=== PATIENT | male | born 1955 | race Caucasian/White ===

== ENCOUNTER 2018-07-26 13:51 | Inpatient (IN) | payer BC, OTHER | END 2018-07-29 10:50 | disposition home or self-care (01) | LOC: TELE-WESTW 07-28 15:13 → ER 13:51 → TELE-WESTW 07-27 12:21 → DOU IN ICU 07-27 17:03 → TELE 16:27 → TELE-WESTW 19:05 | DX: K56.609 Unspecified intestinal obstruction, unspecified as to partial versus complete obstruction (principal); N17.0 Acute kidney failure with tubular necrosis; C85.90 Non-Hodgkin lymphoma, unspecified, unspecified site ==

== ENCOUNTER 2018-08-05 07:07 | Inpatient (IN) | payer BC ==
[~2018-08-05] VITALS: Ht 177.8 cm; Wt 66.6 kg
[~2018-08-05 07:07] MED LIST: MET5XLT PO
[2018-08-05] MEDS ORDERED: SODIUM CHLORIDE 0.9% 1,000 ML IV ONE ×2 (07:22)
[2018-08-05] MEDS ORDERED: MORPHINE SULFATE 4 MG/ML SYR/VIAL IV ONE (07:30)
[2018-08-05] MEDS ORDERED: ONDANSETRON HCL 4 MG/2 ML VIAL IV ONE (07:30)
[2018-08-05 07:52] LABS: Lymphocytes # (auto) 0.8 uL; White Blood Cell 7.1 10^3/uL (4.4-10.8)
[2018-08-05 07:53] LABS: Basophils # (auto) 0.1 uL; Basophils % (auto) 1.3 % (0.0-2.0); Eosinophils # (auto) 0.1 uL; Eosinophils % (auto) 0.9 % (0.0-7.0); Hematocrit 44.1 % (41.0-53.0); Hemoglobin 15.3 g/dL (13.5-17.5); Lymphocytes % (auto) 11.6 % (10.0-50.0); Mean Corpuscular Hgb Conc. 34.7 g/dL (32.0-36.0); Mean Corpuscular Volume 92.3 fL (80.0-100.0); Monocytes # (auto) 0.6 uL; Monocytes % (auto) 7.8 % (0.0-12.0); Neutrophils # (auto) 5.6 uL; Neutrophils % (auto) 78.4 % (37.0-80.0); Platelet Count (auto) 546 10^3/uL (140-450); Red Blood Cells 4.78 10^6/uL (4.5-5.90); Red Cell Distribution Width 13.4 % (11.8-14.3)
[2018-08-05 08:10] LABS: Albumin 3.7 g/dL (3.4-5.0); Anion Gap 9 (5-15); Blood Urea Nitrogen 11 mg/dL (7-18); Calcium 9.3 mg/dL (8.5-10.1); Carbon Dioxide 26 mmol/L (21-32); Chloride 100 mmol/L (98-107); Glucose 99 mg/dL (74-106); Potassium 4.5 mmol/L (3.5-5.1); Sodium 135 mmol/L (136-145)
[2018-08-05 08:11] LABS: Alanine Aminotransferase 24 U/L (16-61); Aspartate Aminotransferase 26 U/L (15-37); BUN/Creatinine Ratio 7.4; GFR African American 62 mL/min; GFR Non-African American 51 mL/min
[2018-08-05 08:12] LABS: INR 0.93 (0.9-1.15); Partial Thromboplastin Time 27.7 sec (23.78-33.04)
[2018-08-05 08:13] LABS: Alkaline Phosphatase 111 U/L (45-117); Bilirubin, Total 0.4 mg/dL (0.2-1.0); Total Protein 7.8 g/dL (6.4-8.2)
[2018-08-05] MEDS ORDERED: SODIUM CHLORIDE 0.9% 1,000 ML IV SCH (10:58)
[2018-08-05] MEDS ORDERED: cefTRIAXone 1GM/50ML D5W 50 ML IV ONE (11:00)
[2018-08-05] MEDS ORDERED: NITROGLYCERIN 0.4 MG SL TAB SL PRN (11:00)
[2018-08-05] MEDS ORDERED: MORPHINE SULFATE 4 MG/ML SYR/VIAL IV PRN (11:00)
[2018-08-05] MEDS ORDERED: MORPHINE SULF INJ 2 MG/ML SYRINGE 1ML IV PRN (11:00)
[2018-08-05] MEDS ORDERED: PROMETHAZINE HCL 25 MG/ML 1ML IV PRN (11:00)
[2018-08-05] MEDS: MORPHINE SULFATE 4 MG/ML SYR/VIAL IV PRN ×3 (11:25→20:53)
[2018-08-05] MEDS: FAMOTIDINE (10MG/ML) 2ML VL IV SCH ×2 (11:25→22:55)
[2018-08-05] MEDS ORDERED: GASTROGRAFIN 120 ML SOL ONE (11:28)
[2018-08-05 13:30] VITALS: BP 135/83
--- NOTE | 2018-08-05 13:30 | NUR ---
Telemetry admit from [facility] admitted to Telemetry unit after SBAR received. Patient oriented to Felicia Stephenson, primary RN, room 274B and unit policies regarding patient care and visiting hours. Patient now on continuous telemetry monitoring, tele box #15 and telemetry reading on arrival to unit is SR 75. NG tube is intact, and patent, currently off suction for small bowel series. HOB elevated 45 degrees, side-rails up x2 fpr safety. Patient placed on bedside oxygen 2L nasal cannula, weighed by bedscale and encouraged to call if they need something. All questions and concerns addressed, patient verbalized understanding. Call light on hand, will continue to monitor for changes PRN and Q1hr.
[2018-08-05] MEDS: metroNIDAZOLE 500MG/100ML 100 ML IV SCH ×2 (14:00→21:40)
[2018-08-05] MEDS: SODIUM CHLORIDE 0.9% 1,000 ML IV SCH (14:05)
--- NOTE | 2018-08-05 16:20 | NUR ---
Spoke to Dr. Davidson and informed him of small bowel series results, also informed him that patient has been having bowels movements. MD verbalized he will see patient tomorrow.
[2018-08-05 17:00] VITALS: BP 110/62
--- NOTE | 2018-08-05 20:00 | NUR ---
Opening shift note: Pt called for pain medication and upon entering pt room with IV Morphine 2 mg , Pt starts to yell at staff and state that he is very angry for having to wait. He further states that he does not not want to hear what staff has to say. Pt offered pain meds and after giving the pain meds pt appeared to calm down and was able to discuss POC and verbalizes understanding. Bed is low, wheels are locked , and call light is with in reach. Signed: 08/06/18 at 311 by LEIA STONE <Co-Signature Required> Co-Signed: 08/06/18 at 311 by JIMMY CARRASCO RN
[2018-08-05 23:14] VITALS: BP 129/80
[2018-08-06] MEDS: MORPHINE SULFATE 4 MG/ML SYR/VIAL IV PRN ×3 (00:45→08:56)
[2018-08-06] MEDS: SODIUM CHLORIDE 0.9% 1,000 ML IV SCH ×2 (00:58→10:05)
[2018-08-06 05:19] VITALS: BP 153/92
[2018-08-06] MEDS: metroNIDAZOLE 500MG/100ML 100 ML IV SCH ×2 (06:22→13:31)
[2018-08-06 06:37] LABS: Albumin 3.2 g/dL (3.4-5.0); BUN/Creatinine Ratio 7.1; Bilirubin, Total 0.5 mg/dL (0.2-1.0); Total Protein 6.6 g/dL (6.4-8.2)
--- NOTE | 2018-08-06 08:00 | NUR ---
Morning note patient resting in bed with even and unlabored respirations, no distress noted. Instructed patient on POC, fall precautions and to call for assistance as needed. Patient verbalized understanding. Fall precautions in place with call light within reach. Will continue to monitor q1hr & PRN.
[2018-08-06 08:42] VITALS: BP 145/82
[2018-08-06] MEDS ORDERED: cefTRIAXone 1GM/50ML D5W 50 ML IV SCH (09:00)
--- NOTE | 2018-08-06 11:31 | NUR ---
was at bedside - Dr. Iesha Gómez Patient is to be discharged after 1400 today, 08/06/18.
[2018-08-06] MEDS: FAMOTIDINE (10MG/ML) 2ML VL IV SCH (11:34)
--- NOTE | 2018-08-06 11:40 | NUR ---
NGT removal NGT removed per MD order following explanation and instruction to patient. Patient verbalized understanding prior to removal. Patient tolerated well.
[2018-08-06 12:30] VITALS: BP 146/85
--- NOTE | 2018-08-06 13:55 | NUR ---
Patient denies N/V and/or abdominal pain at this time Patient states "I feel great. I got a little food in me and took a 2 minute little nap and now I feel great. I'm ready to go." Will discharge patient per MD's order.
--- NOTE | 2018-08-06 14:12 | NUR ---
Discharge Discharge education and paperwork given to the patient per MD's orders. Patient verbalized understanding. Patient reports having an appointment with PCP on Wednesday. IV removed with clean technique, catheter intact. Dressing applied. Patient tolerated well. No trauma to site noted. Telemonitor removed and returned to telemonitor [facility]. Patient collected all personal belongings. Patient taken to private vehicle via wheelchair by staff member. Patient's spouse transporting patient to place of residence. No distress noted at time of departure.
== END 2018-08-06 14:12 | disposition home or self-care (01) | DRG 389 ==
LOC: EDBD 07:07 → ER 07:08 → TELE 10:58 → TELE-WESTW 13:31
PROVIDERS: ADMIT Internal Medicine; ATTEND Internal Medicine
DX: K56.600 Partial intestinal obstruction, unspecified as to cause (principal); J98.11 Atelectasis; I70.90 Unspecified atherosclerosis; N18.3 Chronic kidney disease, stage 3 (moderate); Z82.3 Family history of stroke; Z82.49 Family history of ischemic heart disease and other diseases of the circulatory system; Z85.72 Personal history of non-Hodgkin lymphomas; Z83.3 Family history of diabetes mellitus; Z90.5 Acquired absence of kidney
CPT/HCPCS: 36415; 71045; 74176; 74250; 80053; 84484; 85025; 85610; 85730; 93005; 94761; 96361; 96374; 96375; G0378; J0696; J2405; J3490

== ENCOUNTER 2020-08-22 21:24 | Inpatient (IN) | payer BC, MEDICARE ==
[~2020-08-22] VITALS: Ht 177.8 cm; Wt 60.9 kg
[~2020-08-22 21:24] MED LIST changes: -MET5XLT PO; +METO-6 PO
[2020-08-22 22:05] LABS: Basophils # (auto) 0 10 ^3/uL (0-0.2); Basophils % (auto) 0.7 % (0.0-2.0); Eosinophils # (auto) 0 10 ^3/uL (0-0.8); Eosinophils % (auto) 0.8 % (0.0-7.0); Hematocrit 38.2 % (41.0-53.0); Hemoglobin 13.3 g/dL (13.5-17.5); Lymphocytes # (auto) 0.8 10 ^3/uL (0.4-5.4); Lymphocytes % (auto) 13.7 % (10.0-50.0); Mean Corpuscular Hemoglobin 32.4 pg (28.0-32.0); Mean Corpuscular Hgb Conc. 34.8 g/dL (32.0-36.0); Mean Corpuscular Volume 93.2 fL (80.0-100.0); Monocytes # (auto) 0.5 10 ^3/uL (0-1.3); Monocytes % (auto) 8.3 % (0.0-12.0); Neutrophils # (auto) 4.4 10 ^3/uL (1.6-8.6); Neutrophils % (auto) 76.5 % (37.0-80.0); Nucleated Red Blood Cells % 0.1 %; Platelet Count (auto) 301 10^3/uL (140-450); Red Cell Distribution Width 12.9 % (11.8-14.3); White Blood Cell 5.7 10^3/uL (4.4-10.8)
[2020-08-22 22:19] LABS: Calcium 9.3 mg/dL (8.5-10.1); Potassium 4.5 mmol/L (3.5-5.1)
[2020-08-22 22:25] LABS: Albumin 3.9 g/dL (3.4-5.0); BUN/Creatinine Ratio 20.4; Bilirubin, Total 0.7 mg/dL (0.2-1.0); Total Protein 7.2 g/dL (6.4-8.2)
[2020-08-23] MEDS ORDERED: IOHEXOL 300 MG/ML 100ML BOTTLE IJ ONE
[2020-08-23] MEDS ORDERED: ONDANSETRON HCL 4 MG/2 ML VIAL IV ONE ×2 (01:15→09:00)
[2020-08-23] MEDS ORDERED: MORPHINE SULFATE 4 MG/ML SYR/VIAL IV ONE ×3 (01:15→09:00)
[2020-08-23 02:15] LABS: Urine Amorphous Crystal MANY /hpf (None Seen); Urine Bacteria NONE SEEN /hpf (None Seen); Urine Blood Negative /uL (Negative); Urine Specific Gravity 1.024 (1.001-1.035); Urine WBC 3 /hpf (0 - 3)
[2020-08-23] MEDS ORDERED: GASTROGRAFIN 120 ML SOL ONE (09:37)
[2020-08-23] MEDS ORDERED: HYDROcodone-ACET 5/325MG TAB PO PRN (10:15)
[2020-08-23] MEDS ORDERED: MORPHINE SULF INJ 2 MG/ML SYRINGE 1ML IV PRN (10:15)
[2020-08-23] MEDS ORDERED: NITROGLYCERIN 0.4 MG SL TAB SL PRN (10:15)
[2020-08-23] MEDS ORDERED: ONDANSETRON HCL 4 MG/2 ML VIAL IV PRN (10:15)
[2020-08-23] MEDS ORDERED: ACETAMINOPHEN 325 MG TAB PO PRN (10:15)
[2020-08-23] MEDS ORDERED: ALUM & MAG HYDROX-SIMETH LIQ(MAALOX) 30 ML PO PRN (10:15)
[2020-08-23] MEDS ORDERED: TEMAZEPAM 15 MG CAP PO PRN (10:15)
[2020-08-23] MEDS: SODIUM CHLORIDE 0.9% 1,000 ML IV SCH (11:58)
[2020-08-23] MEDS: MORPHINE SULF INJ 2 MG/ML SYRINGE 1ML IV PRN ×3 (12:44→20:56)
[2020-08-23 13:00] VITALS: BP 143/90
[2020-08-23 17:00] VITALS: BP 146/84
[2020-08-23 22:17] VITALS: BP 119/81
[2020-08-24] MEDS: MORPHINE SULF INJ 2 MG/ML SYRINGE 1ML IV PRN ×6 (01:29→22:28)
[2020-08-24] MEDS: SODIUM CHLORIDE 0.9% 1,000 ML IV SCH ×2 (02:56→19:35)
[2020-08-24 05:12] VITALS: BP 125/80
[2020-08-24 05:56] LABS: Basophils # (auto) 0 10 ^3/uL (0-0.2); Basophils % (auto) 0.5 % (0.0-2.0); Eosinophils # (auto) 0 10 ^3/uL (0-0.8); Eosinophils % (auto) 0.1 % (0.0-7.0); Hemoglobin 15.5 g/dL (13.5-17.5); Lymphocytes # (auto) 0.5 10 ^3/uL (0.4-5.4); Lymphocytes % (auto) 5.6 % (10.0-50.0); Mean Corpuscular Hgb Conc. 35.2 g/dL (32.0-36.0); Mean Corpuscular Volume 93.7 fL (80.0-100.0); Monocytes # (auto) 0.6 10 ^3/uL (0-1.3); Monocytes % (auto) 6.5 % (0.0-12.0); Neutrophils # (auto) 7.9 10 ^3/uL (1.6-8.6); Neutrophils % (auto) 87.3 % (37.0-80.0); Nucleated Red Blood Cells % 0.2 %; Platelet Count (auto) 329 10^3/uL (140-450); Red Blood Cells 4.69 10^6/uL (4.5-5.90); Red Cell Distribution Width 12.9 % (11.8-14.3)
[2020-08-24 06:16] LABS: INR 1.02 (0.9-1.15); Partial Thromboplastin Time 26.9 sec (23.0-31.2)
[2020-08-24 06:19] LABS: BUN/Creatinine Ratio 24.3; Calcium 8.8 mg/dL (8.5-10.1); Magnesium 2.2 mg/dL (1.6-2.6); Phosphorus 3.3 mg/dL (2.5-4.90); Potassium 4.4 mmol/L (3.5-5.1)
[2020-08-24 08:43] VITALS: BP 117/73
[2020-08-24 12:51] VITALS: BP 112/66
[2020-08-24 16:36] VITALS: BP 122/80
[2020-08-24 22:00] VITALS: BP 139/81
[2020-08-25] MEDS: MORPHINE SULF INJ 2 MG/ML SYRINGE 1ML IV PRN ×6 (02:29→22:35)
[2020-08-25 05:00] VITALS: BP 128/77
[2020-08-25 08:55] VITALS: BP 117/74
[2020-08-25] MEDS: SODIUM CHLORIDE 0.9% 1,000 ML IV SCH (12:19)
[2020-08-25 13:00] VITALS: BP 113/72
[2020-08-25 17:00] VITALS: BP 103/35
[2020-08-25 18:00] VITALS: BP 125/74
[2020-08-25 22:00] VITALS: BP 131/67
[2020-08-26 04:42] VITALS: BP 128/83
[2020-08-26] MEDS: SODIUM CHLORIDE 0.9% 1,000 ML IV SCH ×2 (04:55→05:30)
[2020-08-26 09:00] VITALS: BP 125/75
[2020-08-26 13:00] VITALS: BP 121/77
== END 2020-08-26 13:00 | disposition left against medical advice (07) | DRG 390 ==
LOC: EDBD 21:24 → ER 21:24 → OVERFLOW 08-23 10:12 → WEST WING 08-23 11:12
PROVIDERS: ADMIT Internal Medicine; ATTEND Internal Medicine
DX: K56.609 Unspecified intestinal obstruction, unspecified as to partial versus complete obstruction (principal); Z20.822 Contact with and (suspected) exposure to COVID-19; Z53.29 Procedure and treatment not carried out because of patient's decision for other reasons; E61.1 Iron deficiency; Z90.5 Acquired absence of kidney; Z83.3 Family history of diabetes mellitus
CPT/HCPCS: 36415; 71045; 74018; 74177; 74250; 80048; 80053; 81001; 83690; 83735; 84100; 85025; 85610; 85730; 87426; 93005; 96374; 96375; 96376; G0378; J2405

== ENCOUNTER 2020-09-13 22:30 | Inpatient (IN) | payer MEDICARE ==
[~2020-09-13] VITALS: Ht 175.3 cm; Wt 59.7 kg
[2020-09-13] MEDS ORDERED: SODIUM CHLORIDE 0.9% 1,000 ML IV ONE (23:00)
[2020-09-13] MEDS ORDERED: MORPHINE SULFATE 4 MG/ML SYR/VIAL IV ONE (23:00)
[2020-09-13] MEDS ORDERED: ONDANSETRON HCL 4 MG/2 ML VIAL IV ONE (23:00)
[2020-09-13 23:32] LABS: Basophils # (auto) 0.1 10 ^3/uL (0-0.2); Basophils % (auto) 3.4 % (0.0-2.0); Eosinophils # (auto) 0.4 10 ^3/uL (0-0.8); Eosinophils % (auto) 8.4 % (0.0-7.0); Hematocrit 37.7 % (41.0-53.0); Hemoglobin 12.9 g/dL (13.5-17.5); Lymphocytes # (auto) 0.6 10 ^3/uL (0.4-5.4); Lymphocytes % (auto) 13.4 % (10.0-50.0); Mean Corpuscular Hemoglobin 31.6 pg (28.0-32.0); Mean Corpuscular Hgb Conc. 34.3 g/dL (32.0-36.0); Mean Corpuscular Volume 92.3 fL (80.0-100.0); Monocytes # (auto) 0.3 10 ^3/uL (0-1.3); Monocytes % (auto) 7.2 % (0.0-12.0); Neutrophils % (auto) 67.6 % (37.0-80.0); Nucleated Red Blood Cells % 0.1 %; Platelet Count (auto) 348 10^3/uL (140-450); Red Blood Cells 4.08 10^6/uL (4.5-5.90); Red Cell Distribution Width 12.6 % (11.8-14.3); White Blood Cell 4.4 10^3/uL (4.4-10.8)
[2020-09-13 23:53] LABS: Albumin 3.2 g/dL (3.4-5.0); Calcium 8.9 mg/dL (8.5-10.1); Potassium 4.2 mmol/L (3.5-5.1)
[2020-09-14] VITALS (8 sets, daily range): BP systolic 108–146; BP diastolic 73–88
[2020-09-14] LABS: BUN/Creatinine Ratio 14.6; Bilirubin, Total 0.5 mg/dL (0.2-1.0); Total Protein 6.6 g/dL (6.4-8.2)
[2020-09-14] MEDS ORDERED: HYDROcodone-ACET 5/325MG TAB PO PRN (02:45)
[2020-09-14] MEDS ORDERED: NITROGLYCERIN 0.4 MG SL TAB SL PRN (02:45)
[2020-09-14] MEDS ORDERED: ACETAMINOPHEN 325 MG TAB PO PRN (02:45)
[2020-09-14] MEDS ORDERED: MORPHINE SULF INJ 2 MG/ML SYRINGE 1ML IV PRN (02:45)
[2020-09-14] MEDS: D5W/SOD CHLO 0.9% 1,000 ML IV SCH ×2 (03:44→15:59)
[2020-09-14] MEDS: MORPHINE SULFATE 4 MG/ML SYR/VIAL IV PRN ×6 (03:44→23:57)
[2020-09-14] MEDS: ONDANSETRON HCL 4 MG/2 ML VIAL IV PRN ×2 (03:44→16:11)
[2020-09-14 04:31] LABS: Urine WBC None Seen /hpf (0 - 3)
[2020-09-14 04:51] LABS: Urine Bacteria FEW /hpf (None Seen); Urine Blood Negative /uL (Negative); Urine Budding Yeast MODERATE /hpf (None Seen); Urine Specific Gravity 1.019 (1.001-1.035)
[2020-09-14] MEDS: FAMOTIDINE (10MG/ML) 2ML VL IV SCH ×2 (08:55→22:48)
[2020-09-14] MEDS: ENOXAPARIN SOD 40 MG/0.4 ML SYRINGE SC SCH (08:55)
[2020-09-14 09:10] LABS: Albumin 3.3 g/dL (3.4-5.0); Basophils # (auto) 0 10 ^3/uL (0-0.2); Basophils % (auto) 0.4 % (0.0-2.0); Calcium 8.6 mg/dL (8.5-10.1); Eosinophils # (auto) 0 10 ^3/uL (0-0.8); Eosinophils % (auto) 0.8 % (0.0-7.0); Hematocrit 39.1 % (41.0-53.0); Hemoglobin 13.5 g/dL (13.5-17.5); Lymphocytes # (auto) 0.5 10 ^3/uL (0.4-5.4); Lymphocytes % (auto) 7.4 % (10.0-50.0); Mean Corpuscular Hgb Conc. 34.5 g/dL (32.0-36.0); Mean Corpuscular Volume 92.8 fL (80.0-100.0); Monocytes # (auto) 0.3 10 ^3/uL (0-1.3); Monocytes % (auto) 5.5 % (0.0-12.0); Neutrophils # (auto) 5.3 10 ^3/uL (1.6-8.6); Neutrophils % (auto) 85.9 % (37.0-80.0); Nucleated Red Blood Cells % 0.1 %; Platelet Count (auto) 346 10^3/uL (140-450); Potassium 4.3 mmol/L (3.5-5.1); Red Blood Cells 4.21 10^6/uL (4.5-5.90); Red Cell Distribution Width 12.8 % (11.8-14.3); White Blood Cell 6.1 10^3/uL (4.4-10.8)
[2020-09-14] MEDS ORDERED: GASTROGRAFIN 120 ML SOL ONE (09:20)
[2020-09-14 10:01] LABS: Bilirubin, Total 0.6 mg/dL (0.2-1.0); Total Protein 6.8 g/dL (6.4-8.2)
[2020-09-15] MEDS: MORPHINE SULFATE 4 MG/ML SYR/VIAL IV PRN ×4 (04:03→22:03)
[2020-09-15 05:00] VITALS: BP 114/68
[2020-09-15 06:31] LABS: Basophils # (auto) 0 10 ^3/uL (0-0.2); Basophils % (auto) 0.1 % (0.0-2.0); Eosinophils # (auto) 0 10 ^3/uL (0-0.8); Eosinophils % (auto) 0.4 % (0.0-7.0); Hematocrit 40.3 % (41.0-53.0); Hemoglobin 14.4 g/dL (13.5-17.5); Lymphocytes # (auto) 0.4 10 ^3/uL (0.4-5.4); Mean Corpuscular Hemoglobin 33.2 pg (28.0-32.0); Mean Corpuscular Hgb Conc. 35.7 g/dL (32.0-36.0); Mean Corpuscular Volume 93.1 fL (80.0-100.0); Monocytes # (auto) 0.7 10 ^3/uL (0-1.3); Monocytes % (auto) 6.4 % (0.0-12.0); Neutrophils # (auto) 9.7 10 ^3/uL (1.6-8.6); Neutrophils % (auto) 89.1 % (37.0-80.0); Nucleated Red Blood Cells % 0.1 %; Platelet Count (auto) 350 10^3/uL (140-450); Red Blood Cells 4.33 10^6/uL (4.5-5.90); Red Cell Distribution Width 12.6 % (11.8-14.3); White Blood Cell 10.9 10^3/uL (4.4-10.8)
[2020-09-15 06:41] LABS: Albumin 3.3 g/dL (3.4-5.0); Calcium 8.5 mg/dL (8.5-10.1); Potassium 4.1 mmol/L (3.5-5.1)
[2020-09-15 06:45] LABS: BUN/Creatinine Ratio 12.5; Bilirubin, Total 0.9 mg/dL (0.2-1.0); Total Protein 7.1 g/dL (6.4-8.2)
[2020-09-15] MEDS: D5W/SOD CHLO 0.9% 1,000 ML IV SCH (06:45)
[2020-09-15] MEDS: FAMOTIDINE (10MG/ML) 2ML VL IV SCH ×2 (08:16→22:03)
[2020-09-15] MEDS: ENOXAPARIN SOD 40 MG/0.4 ML SYRINGE SC SCH (08:16)
[2020-09-15 08:56] VITALS: BP 108/75
[2020-09-15 12:20] VITALS: BP 99/68
[2020-09-15 17:00] VITALS: BP 114/70
[2020-09-15 22:00] VITALS: BP 113/72
[2020-09-16] MEDS: D5W/SOD CHLO 0.9% 1,000 ML IV SCH ×2 (01:31→08:20)
[2020-09-16] MEDS: MORPHINE SULFATE 4 MG/ML SYR/VIAL IV PRN ×2 (02:59→07:48)
[2020-09-16 05:00] VITALS: BP 109/75
[2020-09-16 05:59] LABS: Potassium 4.1 mmol/L (3.5-5.1)
[2020-09-16 06:00] LABS: Basophils # (auto) 0 10 ^3/uL (0-0.2); Basophils % (auto) 0.4 % (0.0-2.0); Eosinophils # (auto) 0.1 10 ^3/uL (0-0.8); Eosinophils % (auto) 1.6 % (0.0-7.0); Hematocrit 39.4 % (41.0-53.0); Hemoglobin 14.1 g/dL (13.5-17.5); Lymphocytes # (auto) 0.7 10 ^3/uL (0.4-5.4); Lymphocytes % (auto) 16.2 % (10.0-50.0); Mean Corpuscular Hemoglobin 33.2 pg (28.0-32.0); Mean Corpuscular Hgb Conc. 35.8 g/dL (32.0-36.0); Mean Corpuscular Volume 92.5 fL (80.0-100.0); Monocytes # (auto) 0.4 10 ^3/uL (0-1.3); Monocytes % (auto) 9.7 % (0.0-12.0); Neutrophils # (auto) 3.2 10 ^3/uL (1.6-8.6); Neutrophils % (auto) 72.1 % (37.0-80.0); Nucleated Red Blood Cells % 0.1 %; Platelet Count (auto) 314 10^3/uL (140-450); Red Blood Cells 4.26 10^6/uL (4.5-5.90); Red Cell Distribution Width 12.5 % (11.8-14.3); White Blood Cell 4.4 10^3/uL (4.4-10.8)
[2020-09-16 06:25] LABS: Calcium 8.7 mg/dL (8.5-10.1)
[2020-09-16] MEDS: FAMOTIDINE (10MG/ML) 2ML VL IV SCH (09:09)
[2020-09-16] MEDS: ENOXAPARIN SOD 40 MG/0.4 ML SYRINGE SC SCH (09:13)
[2020-09-16 09:28] VITALS: BP 112/74
[2020-09-16 12:56] VITALS: BP 113/78
== END 2020-09-16 12:00 | disposition left against medical advice (07) | DRG 388 ==
LOC: EDUNIT# 22:30 → EDBD 22:30 → ER 22:30 → TELE-EAST 09-14 02:45
PROVIDERS: ADMIT Nurse Practitioner Family; ATTEND Internal Medicine
PROC: 0D9670Z Drainage of Stomach with Drainage Device, Via Natural or Artificial Opening (ICD-10-PCS; principal; 2020-09-14)
DX: K56.609 Unspecified intestinal obstruction, unspecified as to partial versus complete obstruction (principal); J69.0 Pneumonitis due to inhalation of food and vomit; Z20.822 Contact with and (suspected) exposure to COVID-19; N18.2 Chronic kidney disease, stage 2 (mild); Z53.29 Procedure and treatment not carried out because of patient's decision for other reasons; D63.8 Anemia in other chronic diseases classified elsewhere; E11.22 Type 2 diabetes mellitus with diabetic chronic kidney disease; Z83.3 Family history of diabetes mellitus
CPT/HCPCS: 36415; 71045; 74018; 74176; 74250; 80048; 80053; 81001; 82150; 83605; 83690; 84443; 84484; 85025; 87040; 87081; 87426; 96361; 96374; 96375; 96376; G0378; J2405; J3490; J7042

== ENCOUNTER 2020-10-03 21:49 | Inpatient (IN) | payer MEDICARE, BC ==
[~2020-10-03] VITALS: Ht 177.8 cm; Wt 60.3 kg
[2020-10-03] MEDS ORDERED: IOHEXOL 300 MG/ML 100ML BOTTLE IJ ONE (22:17)
[2020-10-03 23:10] LABS: Basophils # (auto) 0 10 ^3/uL (0-0.2); Basophils % (auto) 0.3 % (0.0-2.0); Eosinophils # (auto) 0 10 ^3/uL (0-0.8); Eosinophils % (auto) 0.2 % (0.0-7.0); Hematocrit 43.2 % (41.0-53.0); Hemoglobin 15.4 g/dL (13.5-17.5); Lymphocytes # (auto) 0.4 10 ^3/uL (0.4-5.4); Lymphocytes % (auto) 5.6 % (10.0-50.0); Mean Corpuscular Hemoglobin 32.7 pg (28.0-32.0); Mean Corpuscular Hgb Conc. 35.6 g/dL (32.0-36.0); Mean Corpuscular Volume 91.9 fL (80.0-100.0); Monocytes # (auto) 0.5 10 ^3/uL (0-1.3); Monocytes % (auto) 6.9 % (0.0-12.0); Neutrophils # (auto) 6.1 10 ^3/uL (1.6-8.6); Nucleated Red Blood Cells % 0.1 %; Red Cell Distribution Width 12.9 % (11.8-14.3)
[2020-10-03 23:30] LABS: Albumin 3.8 g/dL (3.4-5.0); Calcium 8.8 mg/dL (8.5-10.1); Potassium 4.4 mmol/L (3.5-5.1)
[2020-10-03 23:36] LABS: Bilirubin, Total 0.9 mg/dL (0.2-1.0); Total Protein 7.9 g/dL (6.4-8.2)
[2020-10-04] MEDS ORDERED: MORPHINE SULF INJ 2 MG/ML SYRINGE 1ML IV ONE (00:30)
[2020-10-04] MEDS ORDERED: ONDANSETRON HCL 4 MG/2 ML VIAL IV ONE (00:30)
[2020-10-04] MEDS ORDERED: SODIUM CHLORIDE 0.9% 1,000 ML IV ONE ×2 (00:30→01:30)
[2020-10-04] MEDS ORDERED: ONDANSETRON HCL 4 MG/2 ML VIAL IV PRN (02:00)
[2020-10-04] MEDS ORDERED: HYDROcodone-ACET 5/325MG TAB PO PRN (02:00)
[2020-10-04] MEDS ORDERED: MORPHINE SULF INJ 2 MG/ML SYRINGE 1ML IV PRN (02:00)
[2020-10-04] MEDS ORDERED: NITROGLYCERIN 0.4 MG SL TAB SL PRN (02:00)
[2020-10-04] MEDS ORDERED: ACETAMINOPHEN 325 MG TAB PO PRN (02:00)
[2020-10-04] MEDS: SODIUM CHLORIDE 0.9% 1,000 ML IV SCH ×2 (02:45→18:40)
[2020-10-04] MEDS: MORPHINE SULF INJ 2 MG/ML SYRINGE 1ML IV PRN ×4 (04:25→23:17)
[2020-10-04 08:30] VITALS: BP 103/63
[2020-10-04 08:57] VITALS: BP 103/63
[2020-10-04] MEDS ORDERED: GASTROGRAFIN 120 ML SOL ONE ×2 (09:19→12:45)
[2020-10-04 09:37] LABS: Hematocrit 41.8 % (41.0-53.0); Hemoglobin 14.6 g/dL (13.5-17.5); Mean Corpuscular Hemoglobin 32.7 pg (28.0-32.0); Mean Corpuscular Volume 93.4 fL (80.0-100.0); Red Blood Cells 4.47 10^6/uL (4.5-5.90); Red Cell Distribution Width 12.9 % (11.8-14.3); White Blood Cell 5.7 10^3/uL (4.4-10.8)
[2020-10-04 09:41] LABS: Basophils % (auto) 0.5 % (0.0-2.0); Eosinophils % (auto) 0.6 % (0.0-7.0); Lymphocytes % (auto) 8.3 % (10.0-50.0); Monocytes % (auto) 12.1 % (0.0-12.0); Neutrophils # (auto) 4.5 10 ^3/uL (1.6-8.6); Neutrophils % (auto) 78.5 % (37.0-80.0); Nucleated Red Blood Cells % 0.1 %
[2020-10-04 09:42] LABS: Basophils # (auto) 0 10 ^3/uL (0-0.2); Eosinophils # (auto) 0 10 ^3/uL (0-0.8); Lymphocytes # (auto) 0.5 10 ^3/uL (0.4-5.4); Monocytes # (auto) 0.7 10 ^3/uL (0-1.3)
[2020-10-04 09:53] LABS: Calcium 8.4 mg/dL (8.5-10.1); Potassium 4.1 mmol/L (3.5-5.1)
[2020-10-04 09:59] LABS: Albumin 3.6 g/dL (3.4-5.0); BUN/Creatinine Ratio 35.7; Bilirubin, Total 0.9 mg/dL (0.2-1.0)
[2020-10-04] MEDS: FAMOTIDINE (10MG/ML) 2ML VL IV SCH ×2 (10:00→21:53)
[2020-10-04] MEDS: HEPARIN SODIUM (PORCINE) 5000 UNITS/ML 1ML VIAL SC SCH ×2 (10:00→21:47)
[2020-10-04 12:52] VITALS: BP 98/63
[2020-10-04 16:44] VITALS: BP 104/70
[2020-10-04 20:00] VITALS: BP 94/68
[2020-10-04 22:00] VITALS: BP 94/68
[2020-10-05] MEDS: MORPHINE SULF INJ 2 MG/ML SYRINGE 1ML IV PRN ×2 (03:45→08:03)
[2020-10-05] MEDS: SODIUM CHLORIDE 0.9% 1,000 ML IV SCH (04:47)
[2020-10-05 06:57] LABS: Basophils # (auto) 0 10 ^3/uL (0-0.2); Eosinophils # (auto) 0.1 10 ^3/uL (0-0.8); Eosinophils % (auto) 1.4 % (0.0-7.0); Hematocrit 36.8 % (41.0-53.0); Hemoglobin 13.1 g/dL (13.5-17.5); Lymphocytes # (auto) 0.6 10 ^3/uL (0.4-5.4); Lymphocytes % (auto) 16.1 % (10.0-50.0); Mean Corpuscular Hemoglobin 33.1 pg (28.0-32.0); Mean Corpuscular Hgb Conc. 35.7 g/dL (32.0-36.0); Mean Corpuscular Volume 92.9 fL (80.0-100.0); Monocytes # (auto) 0.4 10 ^3/uL (0-1.3); Monocytes % (auto) 10.7 % (0.0-12.0); Neutrophils # (auto) 2.7 10 ^3/uL (1.6-8.6); Neutrophils % (auto) 70.8 % (37.0-80.0); Nucleated Red Blood Cells % 0.1 %; Red Blood Cells 3.97 10^6/uL (4.5-5.90); Red Cell Distribution Width 12.8 % (11.8-14.3); White Blood Cell 3.9 10^3/uL (4.4-10.8)
[2020-10-05 07:29] LABS: Potassium 4.1 mmol/L (3.5-5.1)
[2020-10-05 07:37] LABS: Albumin 3.2 g/dL (3.4-5.0); Bilirubin, Total 0.6 mg/dL (0.2-1.0); Magnesium 2.3 mg/dL (1.6-2.6); Total Protein 6.4 g/dL (6.4-8.2)
[2020-10-05 09:00] VITALS: BP 101/56
[2020-10-05] MEDS: HEPARIN SODIUM (PORCINE) 5000 UNITS/ML 1ML VIAL SC SCH (10:00)
[2020-10-05] MEDS: FAMOTIDINE (10MG/ML) 2ML VL IV SCH (10:00)
== END 2020-10-05 11:00 | disposition left against medical advice (07) | DRG 389 ==
LOC: EDBD 21:49 → ER 21:49 → TELE 10-04 01:58 → TELE-WESTW 10-04 07:58 → WEST WING 10-05 04:05
PROVIDERS: ADMIT Nurse Practitioner Family; ATTEND Internal Medicine
PROC: 0D9670Z Drainage of Stomach with Drainage Device, Via Natural or Artificial Opening (ICD-10-PCS; principal; 2020-10-04)
DX: K56.609 Unspecified intestinal obstruction, unspecified as to partial versus complete obstruction (principal); N17.9 Acute kidney failure, unspecified; E87.1 Hypo-osmolality and hyponatremia; N18.9 Chronic kidney disease, unspecified; K80.20 Calculus of gallbladder without cholecystitis without obstruction; Z53.29 Procedure and treatment not carried out because of patient's decision for other reasons; Z83.3 Family history of diabetes mellitus; E61.1 Iron deficiency; Z90.5 Acquired absence of kidney
CPT/HCPCS: 36415; 74176; 74250; 80053; 83605; 83735; 85025; 85049; 86850; 86900; 86901; 87081; 87426; 93005; 96361; 96374; 96375; 96376; G0378; J2405; J3490

== ENCOUNTER 2021-01-14 22:22 | Inpatient (IN) | payer MEDICARE, BC ==
[~2021-01-14] VITALS: Ht 177.8 cm; Wt 64.2 kg
[2021-01-14] MEDS ORDERED: SODIUM CHLORIDE 0.9% 1,000 ML IV ONE (23:15)
[2021-01-14] MEDS ORDERED: MORPHINE SULFATE 4 MG/ML SYR/VIAL IV ONE (23:15)
[2021-01-14] MEDS ORDERED: ONDANSETRON HCL 4 MG/2 ML VIAL IV ONE (23:15)
[2021-01-14] MEDS ORDERED: IOHEXOL 300 MG/ML 100ML BOTTLE IJ ONE (23:33)
[2021-01-14 23:59] LABS: Basophils # (auto) 0 10 ^3/uL (0-0.2); Basophils % (auto) 0.2 % (0.0-2.0); Eosinophils # (auto) 0 10 ^3/uL (0-0.8); Eosinophils % (auto) 0.1 % (0.0-7.0); Hematocrit 47.1 % (41.0-53.0); Hemoglobin 16.8 g/dL (13.5-17.5); Lymphocytes # (auto) 0.7 10 ^3/uL (0.4-5.4); Lymphocytes % (auto) 9.5 % (10.0-50.0); Mean Corpuscular Hemoglobin 33.1 pg (28.0-32.0); Mean Corpuscular Hgb Conc. 35.6 g/dL (32.0-36.0); Mean Corpuscular Volume 93.2 fL (80.0-100.0); Monocytes # (auto) 0.4 10 ^3/uL (0-1.3); Monocytes % (auto) 5.3 % (0.0-12.0); Neutrophils % (auto) 84.9 % (37.0-80.0); Nucleated Red Blood Cells % 0.1 %; Red Blood Cells 5.06 10^6/uL (4.5-5.90); Red Cell Distribution Width 12.9 % (11.8-14.3)
[2021-01-15 00:11] LABS: INR 1.02 (0.9-1.15); Partial Thromboplastin Time 28.3 sec (23.6-33.0)
[2021-01-15 00:17] LABS: Alanine Aminotransferase 37 U/L (16-61); Anion Gap 12 (5-15); Aspartate Aminotransferase 29 U/L (15-37); BUN/Creatinine Ratio 16.4; Blood Urea Nitrogen 20 mg/dL (7-18); Calcium 9.2 mg/dL (8.5-10.1); Carbon Dioxide 25 mmol/L (21-32); Chloride 97 mmol/L (98-107); GFR African American 76 mL/min; GFR Non-African American 63 mL/min; Glucose 113 mg/dL (74-106); Lipase 110 U/L (73-393); Potassium 4.8 mmol/L (3.5-5.1); Sodium 134 mmol/L (136-145)
[2021-01-15 00:22] LABS: Alkaline Phosphatase 130 U/L (45-117); Bilirubin, Total 0.8 mg/dL (0.2-1.0); Total Protein 8.4 g/dL (6.4-8.2)
[2021-01-15] MEDS ORDERED: PANTOPRAZOLE 40 MG/10 ML VIAL INJ IV ONE (03:00)
[2021-01-15] MEDS: SODIUM CHLORIDE 0.9% 1,000 ML IV SCH ×2 (03:20→15:03)
[2021-01-15] MEDS: MORPHINE SULFATE 4 MG/ML SYR/VIAL IV PRN ×5 (03:21→20:55)
[2021-01-15] MEDS: ONDANSETRON HCL 4 MG/2 ML VIAL IV PRN ×3 (03:21→11:01)
[2021-01-15 03:45] LABS: Urine Bacteria NONE SEEN /hpf (None Seen); Urine Blood Negative /uL (Negative); Urine Mucus FEW (None Seen); Urine Specific Gravity > 1.050 (1.001-1.035); Urine WBC 3 /hpf (0 - 3)
[2021-01-15] MEDS ORDERED: PANTOPRAZOLE 40 MG/10 ML VIAL INJ IV SCH (10:00)
[2021-01-15] MEDS ORDERED: FERR324T PO (10:06)
[2021-01-15] MEDS ORDERED: B CO1TAB7 PO (10:06)
[2021-01-15] MEDS ORDERED: ASCO500T11 PO (10:06)
[2021-01-15] MEDS ORDERED: B-COCAP34 PO (10:07)
[2021-01-15] MEDS ORDERED: PIPERACILLIN-TAZO 4.5GM 100 ML IV ONE (10:30)
[2021-01-15] MEDS ORDERED: GASTROGRAFIN 120 ML SOL ONE (10:59)
[2021-01-15 16:31] VITALS: BP 127/79
[2021-01-15 17:00] VITALS: BP 127/79
[2021-01-15 20:00] VITALS: BP 104/75
[2021-01-15] MEDS: PIPERACILLIN-TAZO 4.5GM 100 ML IV SCH (20:30)
[2021-01-15 21:43] VITALS: BP 104/75
[2021-01-15] MEDS ORDERED: D5W/SOD CHLO 0.9% 1,000 ML IV SCH (22:45)
[2021-01-16] MEDS: MORPHINE SULFATE 4 MG/ML SYR/VIAL IV PRN (01:46)
[2021-01-16] MEDS: PIPERACILLIN-TAZO 4.5GM 100 ML IV SCH (02:31)
[2021-01-16 05:00] VITALS: BP 131/72
[2021-01-16 07:07] LABS: Basophils # (auto) 0 10 ^3/uL (0-0.2); Basophils % (auto) 0.5 % (0.0-2.0); Eosinophils # (auto) 0.1 10 ^3/uL (0-0.8); Eosinophils % (auto) 1.9 % (0.0-7.0); Hematocrit 42.6 % (41.0-53.0); Hemoglobin 14.6 g/dL (13.5-17.5); Lymphocytes # (auto) 0.7 10 ^3/uL (0.4-5.4); Lymphocytes % (auto) 16.1 % (10.0-50.0); Mean Corpuscular Hemoglobin 32.5 pg (28.0-32.0); Mean Corpuscular Hgb Conc. 34.4 g/dL (32.0-36.0); Mean Corpuscular Volume 94.6 fL (80.0-100.0); Monocytes # (auto) 0.4 10 ^3/uL (0-1.3); Monocytes % (auto) 10.4 % (0.0-12.0); Neutrophils % (auto) 71.1 % (37.0-80.0); Nucleated Red Blood Cells % 0.1 %; Red Blood Cells 4.51 10^6/uL (4.5-5.90); Red Cell Distribution Width 12.8 % (11.8-14.3); White Blood Cell 4.3 10^3/uL (4.4-10.8)
[2021-01-16 07:20] LABS: Albumin 3.4 g/dL (3.4-5.0); Calcium 8.7 mg/dL (8.5-10.1); Potassium 4.3 mmol/L (3.5-5.1)
[2021-01-16 07:34] LABS: BUN/Creatinine Ratio 20.2
== END 2021-01-16 08:00 | disposition left against medical advice (07) | DRG 390 ==
LOC: EDBD 22:22 → ER 22:25 → OVERFLOW 01-15 02:55 → EAST 01-15 17:18
PROVIDERS: ADMIT Nurse Practitioner; ATTEND Internal Medicine Nephrology
DX: K56.609 Unspecified intestinal obstruction, unspecified as to partial versus complete obstruction (principal); N18.9 Chronic kidney disease, unspecified; K80.20 Calculus of gallbladder without cholecystitis without obstruction; Z53.29 Procedure and treatment not carried out because of patient's decision for other reasons; Z20.822 Contact with and (suspected) exposure to COVID-19; Z90.5 Acquired absence of kidney
CPT/HCPCS: 36415; 74177; 74250; 80053; 81001; 83605; 83690; 84484; 85025; 85610; 85730; 87426; 96361; 96374; 96375; C9113; G0378; J2405; J2543; J7042